=== PATIENT | female | born 1980 | race African-American/Black ===

== ENCOUNTER 2018-04-02 17:59 | Emergency (ER) | payer OTHER ==
[2018-04-02 18:10] VITALS: BMI 38.6
--- NOTE | 2018-04-02 18:22 | PDOC ---
History of Present Illness - General Chief Complaint: Chest Pain Stated Complaint: CHEST PAIN, EARACHE, THROAT PAIN Time Seen by Provider: 04/02/18 18:21 - History of Present Illness Initial Comments: 04/02/18 19:12 The patient is a 37 year old female with a history of HTN, obesity who presents for evaluation of chest pain, headache, and shortness of breath. The patient reports a 2 day history of poorly described upper chest pain with associated mild shortness of breath worse when lying flat at night to sleep. She also notes a pressure in her ears when lying flat at night and currently complains of a headache as well. She otherwise denies fevers, chills, nausea, vomiting, abdominal pain, numbness, tingling, weakness, or changes with urination or bowel movements. She denies any leg swelling as well. Past History - Past Medical History Allergies/Adverse Reactions: Allergies Allergy/AdvReac Type Severity Reaction Status Date / Time No Known Allergies Allergy Verified 04/02/18 18:10 Home Medications: Ambulatory Orders Amox-Tr/K Cl [Augmentin - 875Mg Tablet] 1 tab PO BID #14 tablet 04/02/18 Atenolol [Tenormin] 25 mg PO DAILY 04/02/18 COPD: No - Suicide/Smoking/Psychosocial Hx Smoking History: Never smoked Review of Systems - Review of Systems Comments:: 04/02/18 19:15 Constitutional: No fevers, chills, fatigue, malaise HEENT: Ear pressure. No Rhinorrhea, nasal congestion, visual changes Cardiovascular: Chest pain. No syncope, palpitations, lightheadedness Respiratory: SOB. No Cough, Hemoptysis, Gastrointestinal: No Abdominal pain, Nausea, Vomiting, Constipation, Diarrhea, Melena Genitourinary: No Dysuria, Frequency, Urgency, Hesitancy, Hematuria, Flank pain Musculoskeletal: No Myalgia, arthralgia Skin: No rashes, itching, bruising, pallor Neurologic: Headache. No Dizziness, Numbness, Weakness, or Tingling Psychiatric: No Hallucinations. No SI or HI *Physical Exam - Vital Signs Last Vital Signs Temp Pulse Resp BP Pulse Ox 98.3 F 67 18 122/59 L 98 04/02/18 18:06 04/02/18 18:06 04/02/18 18:06 04/02/18 18:06 04/02/18 18:06 - Physical Exam Comments: 04/02/18 19:17 General Appearance: Nourished. No Apparent Distress HEENT: EOMI, EBENEZER. No Pharyngeal Erythema, Tonsillar Exudate, Tonsillar Erythema Neck: No Cervical Lymphadenopathy Respiratory/Chest: Lungs Clear, Normal Breath Sounds. No Crackles, Rales, Rhonchi, Wheezing Cardiovascular: Regular Rhythm, Regular Rate. No Murmur, Gallops, Rubs Gastrointestinal/Abdominal: Normal Bowel Sounds, Soft. No Guarding, Rebound, Tenderness Musculoskeletal: No CVA Tenderness Extremity: Normal Capillary Refill Integumentary: Normal Color, Dry, Warm Neurologic: customer service leader II-XII NML intact, Fully Oriented, Alert, Normal Mood/Affect, Normal Response, Heart Score/ECG Review #1 ECG reviewed & interpreted by me at: 19:17 General ECG Interpretation: Sinus Rhythm, Normal Rate, Normal Intervals, No acute ischemic changes ED Treatment Course - LABORATORY CBC & Chemistry Diagram: 04/02/18 18:45 04/02/18 18:45 Medical Decision Making - Medical Decision Making 04/02/18 19:18 The patient is a 37 year old female with a history of HTN, obesity who presents for evaluation of chest pain, headache, and shortness of breath. Differential includes but is not limited to: ACS, Arrhythmia, Infectious, Metabolic Derangement. Given the patient's history and physical exam, we will obtain a cbc, cmp, troponin, bnp, ekg, chest plain film, serum beta to evaluate further. We will treat with iv tylenol and continue to monitor and reassess while here in the ED. 04/02/18 21:09 CBC, cmp, troponin, BNP are unremarkable. Chest plain film is unremarkable. CT head demonstrates a left otitis media as preliminarily read by our construction engineer radiologist. We have treated the patient with a dose of unasyn here in the ED. The patient appears clinically well on exam here in the ED. We are comfortable discharging the patient home with ENT and primary care provider follow up. We have provided follow up options with the patient. We will discharge the patient on augmentin. We discussed the results, plan, and return precautions with the patient who voiced understanding and is agreeable with the plan. *DC/Admit/Observation/Transfer Diagnosis at time of Disposition: Otitis media Qualifiers: Otitis media type: unspecified Chronicity: acute Qualified Code(s): H66.90 - Otitis media, unspecified, unspecified ear - Discharge Dispostion Disposition: HOME Condition at time of disposition: Stable Decision to Admit order: No - Prescriptions Prescriptions: Amox-Tr/K Cl [Augmentin - 875Mg Tablet] 1 tab PO BID #14 tablet - Referrals Referrals: Bran Hyde MD [Staff Physician] - Ruddy Arroyo MD [Staff Physician] - - Patient Instructions Printed Discharge Instructions: Middle Ear Infection Additional Instructions: Please return to the ER if you experience concerning or worsening symptoms including worsening difficulty breathing, weakness, or chest pain, fever, headache. It appears that you have an infection in your inner left ear. We have sent a prescription to your pharmacy for antibiotics that you should take as directed. Please also call to schedule a follow up appointment with our ENT specialist Dr. Hyde tomorrow to discuss your symptoms and further management. Your lab results were normal here in the ER. Please call to schedule a follow up appointment with your primary care provider within 2-3 days to discuss your ER visit and further management of your symptoms. - Post Discharge Activity
[2018-04-02] MEDS ORDERED: ACETAMINOPHEN 1000 MG/100 ML VIAL (NON FORMULARY) IVPB ONE (18:38)
[2018-04-02] MEDS ORDERED: ACETAMINOPHEN INJECTION 100 ML IVPB ONE (18:49)
[2018-04-02 18:56] LABS: BASO % 0.7 % (0-2.0); HEMATOCRIT 36.8 % (32.4-45.2); HEMOGLOBIN 12.3 GM/dL (10.7-15.3); LYMPH % 43.8 % (8-40); MCH 28.6 pg (25.7-33.7); MCHC 33.5 g/dl (32.0-36.0); MEAN CELL VOLUME 85.4 fl (80-96); MEAN PLT VOLUME 9.3 fl (7.5-11.1); MONO % 6.2 % (3.8-10.2); NEUT % 46.3 % (42.8-82.8); PLATELET COUNT 255 K/MM3 (134-434); RBC 4.32 M/mm3 (3.60-5.2); RDW 15.3 % (11.6-15.6); WHITE BLOOD COUNT 4.7 K/mm3 (4.0-10.0)
--- NOTE | 2018-04-02 19:09 | PDOC ---
Attending Attestation - HPI HPI: 04/02/18 20:03 The patient is a 37 year old female, with a significant past medical history of HTN, who presents to the emergency department with, ear pressure, headache, and chest pain radiating to her back. Patient notes when she lays down to sleep she begins to feel a parisi and fullness to her head and ears. She denies recent fevers, chills, or dizziness. She denies recent nausea, vomit , diarrhea or constipation. She denies recent dysuria, frequency, urgency or hematuria. Allergies: NKDA Past surgical history: None reported. Social history: Nonsmoker. Denies EtOH use and recreational drug use. - Physicial Exam PE: 04/02/18 20:03 +GENERAL: Obese. Awake, alert, and fully oriented, in no acute distress HEAD: No signs of trauma EYES: PERRLA, EOMI, sclera anicteric, conjunctiva clear +ENT: Left TM swollen with white pus-like discharge. Nontender sinuses. NECK: Normal ROM, supple, no lymphadenopathy, JVD, or masses LUNGS: Breath sounds equal, clear to auscultation bilaterally. No wheezes, and no crackles HEART: Regular rate and rhythm, normal S1 and S2, no murmurs, rubs or gallops +ABDOMEN: Protuberant. Soft, nontender, normoactive bowel sounds. No guarding, no rebound. No masses EXTREMITIES: Normal range of motion, no edema. No clubbing or cyanosis. No cords, erythema, or tenderness NEUROLOGICAL: Cranial nerves II through XII grossly intact. Normal speech, normal gait SKIN: Warm, Dry, normal turgor, no rashes or lesions noted. <Soha Nation - Last Filed: 04/02/18 20:03> - Resident Resident Name: Conner Conklin - ED Attending Attestation I have performed the following: I have examined & evaluated the patient, The case was reviewed & discussed with the resident, I agree w/resident's findings & plan - Medical Decision Making 04/02/18 19:28 Pt comes with fullness in her ears and head, especially when she lies down. 04/02/18 19:29 Pt has a CPK of 700s. EKG is NSR and her vitals amd other labs are normal. 04/02/18 21:02 Patient Name: JUAN DIEGO RUIZ THIS IS A PRELIMINARY REPORT FROM [facility] DATE OF SERVICE: 2018-04-02 19:58:22 IMAGES: 143 EXAM: CT head without contrast HISTORY: Ear pressure COMPARISON: None. FINDINGS: There is no evidence of acute infarction. There is no hemorrhage. No mass lesion is seen. There is no skull fracture. Visualized portions of the paranasal sinuses are essentially clear. Mastoid air cells are normally pneumatized. *On the coronal reformatted images there is minimal opacity noted in the left middle ear cavity and question minimal thickening of the left tympanic membrane. Otitis media? Incidentally noted is a likely old fracture of the left orbital floor. Correlate as to chronicity. THIS DOCUMENT HAS BEEN ELECTRONICALLY SIGNED 04/02/18 21:03 Pt will be treated with augmentin BID; asked to return for worsening headache and symptoms. <Callie Gilliland - Last Filed: 04/02/18 21:04> Heart Score/ECG Review - ECG Intrepretation Rhythm: Regular Rhythm - Dumont Dumont: Normal - P and TX Delta Wave(s) Present: No WPW: No - QRS Poor R Wave Progression: No Q Wave Present: No - ST and T Early Repolarization: No Non Specific ST-T Wave changes: No Flattened T Waves: No Prolonged Q-T Interval: No - ECG Impressions Normal ECG: Yes Non-specific ST Elevation: No Ischemic Changes: No Bradycardia: No Torsades todd Pointes: No WPW: No <Callie Gilliland - Last Filed: 04/02/18 21:04> Attestations - Attestations 04/02/18 20:05 Documentation prepared by Soha Nation, acting as manager medical affairs for Callie Gilliland MD. <Soha Nation - Last Filed: 04/02/18 20:03>
[2018-04-02 19:21] LABS: ALBUMIN 3.6 g/dl (3.4-5.0); ALK PHOS 75 U/L (45-117); ANION GAP 6 MMOL/L (8-16); BILIRUBIN,TOTAL 0.2 mg/dL (0.2-1); BLOOD UREA NITROGEN 12 mg/dL (7-18); CALCIUM 8.4 mg/dL (8.5-10.1); CHLORIDE 109 mmol/L (98-107); CO2 26 mmol/L (21-32); CREATININE 0.7 mg/dL (0.55-1.3); GLUCOSE,RANDOM 86 mg/dL (74-106); N-TERMINAL BNP 41.8 pg/ml (5-125); POTASSIUM 3.6 mmol/L (3.5-5.1); SGOT/AST 22 U/L (15-37); SGPT/ALT 19 U/L (13-61); SODIUM 141 mmol/L (136-145); TOT PROT 7.2 g/dl (6.4-8.2)
[2018-04-02] MEDS ORDERED: AMPICILLIN NA/SULBACTAM NA 3 GM in SODIUM CHLORIDE 100 ML IVPB ONE (19:26)
[2018-04-02] MEDS ORDERED: SODIUM CHLORIDE 0.9% 500 ML INFUS.BAG IV ONE (19:28)
[2018-04-02 21:21] VITALS: BP 122/78; PULSE 89; TEMP 98.6
--- NOTE | 2018-04-03 10:46 | EKG ---
Test Reason : Blood Pressure : / mmHG Vent. Rate : 064 BPM Atrial Rate : 064 BPM P-R Int : 182 ms QRS Dur : 080 ms QT Int : 408 ms P-R-T Axes : 058 069 063 degrees QTc Int : 420 ms NORMAL SINUS RHYTHM NORMAL ECG NO PREVIOUS ECGS AVAILABLE Confirmed by TRELL MERCADO MD ([id number]) on 04/03/2018 10:46:29 AM Referred By: Confirmed By:TRELL MERCADO MD
== END 2018-04-02 21:22 | disposition home or self-care (01) ==
LOC: JER 17:59
PROC: 3E03329 Introduction of Other Anti-infective into Peripheral Vein, Percutaneous Approach (ICD-10-PCS; principal; 2018-04-02)
PROC: 3E033NZ Introduction of Analgesics, Hypnotics, Sedatives into Peripheral Vein, Percutaneous Approach (ICD-10-PCS; 2018-04-02)
DX: H66.92 Otitis media, unspecified, left ear (principal); I10 Essential (primary) hypertension
CPT/HCPCS: 36415; 70450-TC; 71045-TC-FY; 80053; 82550; 82553; 83880; 84484; 84702; 85025; 93005; 93010; 99282-25; J0131

== ENCOUNTER 2018-07-08 23:27 | Emergency (ER) | payer OTHER ==
[2018-07-08 23:39] VITALS: BP 151/86; PULSE 120; TEMP 98.6; BMI 48.4
--- NOTE | 2018-07-08 23:49 | PDOC ---
History of Present Illness - General History Source: Patient Exam Limitations: No Limitations - History of Present Illness Initial Comments: 07/09/18 00:02 38 year old female with PMH HTN, medication noncompliance presented to ED for headache since 2199 today. Pt stated headache is locatded to her forehead, constant, throbbing, nonradiating, slowly progressing. Pt admitted to blurry vision, lightheadedness. Pt stated she ran out of her Atenolol x3 weeks ago because she moved, she stated she got her prescription today, and took the first dose. Allergies: NKDA <Joann Cardenas - Last Filed: 07/09/18 01:52> <Callie Gilliland - Last Filed: 07/09/18 02:38> - General Chief Complaint: Blood Pressure Problem Stated Complaint: HIGH BP Time Seen by Provider: 07/08/18 23:49 Past History - Past Medical History COPD: No HTN: Yes - Suicide/Smoking/Psychosocial Hx Smoking History: Never smoked <Joann Cardenas - Last Filed: 07/09/18 01:52> <Callie Gilliland - Last Filed: 07/09/18 02:38> - Past Medical History Allergies/Adverse Reactions: Allergies Allergy/AdvReac Type Severity Reaction Status Date / Time No Known Allergies Allergy Verified 07/08/18 23:32 Home Medications: Ambulatory Orders Amox-Tr/K Cl [Augmentin - 875Mg Tablet] 1 tab PO BID #14 tablet 04/02/18 Atenolol [Tenormin] 25 mg PO DAILY 04/02/18 Review of Systems - Review of Systems Able to Perform ROS?: Yes Comments:: 07/09/18 00:11 General: admitted to generalized weakness. denied fever, chills, night sweats. HEENT: denied sore throat, rhinorrhea, ear pain. Eyes: admitted to blurry vision. Heart: denied chest pain, palpitations, syncope, lower extremity swelling, diaphoresis. Respiratory: denied shortness of breath, cough, sputum production, hemoptysis. Abdomen: denied abdominal pain, nausea, vomiting, diarrhea, constipation, blood in stool. : denied dysuria, increased urinary frequency, hematuria, urinary incontinence , flank pain. Back: denied back pain. Musculoskeletal: denied joint pain, muscle pain, joint swelling. Neurological: admitted to headache. denied dizziness, numbness, tingling, weakness. Skin: denied rash, laceration, abrasion. <Joann Cardenas - Last Filed: 07/09/18 01:52> *Physical Exam - Vital Signs Last Vital Signs Temp Pulse Resp BP Pulse Ox 98.6 F 120 H 18 151/86 97 07/08/18 23:30 07/08/18 23:30 07/08/18 23:30 07/08/18 23:30 07/08/18 23:30 - Physical Exam Comments: 07/09/18 00:13 Constitutional: Well-nourished, Well-developed, appearing stated age. HEENT: head is normocephalic, atraumatic. EOMI. PERRLA. Neck: supple. Full ROM. Heart: regular rhythm. no murmurs, rubs or gallops. Lungs: clear to auscultation bilaterally. no crackles, rhonchi or wheezing. no stridor. Abdomen: soft, nontender. normal bowel sounds. no rebound, guarding, masses. Extremities: Peripheral pulses intact. No lower extremity edema. Neurological: Alert. Oriented x3. CN2-12 intact. 5/5 strength all extremities. Full sensation all extremities and bilateral face. Gait normal. Psych: awake, alert, oriented x3. Follows commands. Answers questions appropriately. <Joann Cardenas - Last Filed: 07/09/18 01:52> - Vital Signs Last Vital Signs Temp Pulse Resp BP Pulse Ox 98.6 F 120 H 18 151/86 97 07/08/18 23:30 07/08/18 23:30 07/08/18 23:30 07/08/18 23:30 07/08/18 23:30 <Callie Gilliland - Last Filed: 07/09/18 02:38> Moderate Sedation - Procedure Monitoring Vital Signs: Procedure Monitoring Vital Signs Temperature 98.6 F 07/08/18 23:30 Pulse Rate 120 H 07/08/18 23:30 Respiratory Rate 18 07/08/18 23:30 Blood Pressure 151/86 07/08/18 23:30 O2 Sat by Pulse Oximetry (%) 97 07/08/18 23:30 <Joann Cardenas - Last Filed: 07/09/18 01:52> - Procedure Monitoring Vital Signs: Procedure Monitoring Vital Signs Temperature 98.6 F 07/08/18 23:30 Pulse Rate 120 H 07/08/18 23:30 Respiratory Rate 18 07/08/18 23:30 Blood Pressure 151/86 07/08/18 23:30 O2 Sat by Pulse Oximetry (%) 97 07/08/18 23:30 <Callie Gilliland - Last Filed: 07/09/18 02:38> ED Treatment Course - LABORATORY CBC & Chemistry Diagram: 07/09/18 00:00 07/09/18 00:00 <RonaldJoann castillo - Last Filed: 07/09/18 01:52> - LABORATORY CBC & Chemistry Diagram: 07/09/18 00:00 07/09/18 00:00 - ADDITIONAL ORDERS Additional order review: Laboratory Results 07/09/18 07/09/18 00:35 00:00 Sodium 139 Potassium 3.2 L Chloride 108 H Carbon Dioxide 23 Anion Gap 7 L BUN 20 H Creatinine 0.9 Creat Clearance w eGFR > 60 Random Glucose 127 H Calcium 8.5 Total Bilirubin 0.1 L AST 23 ALT 27 Alkaline Phosphatase 91 Troponin I < 0.02 B-Natriuretic Peptide 14.7 Total Protein 7.9 Albumin 3.8 Urine Color Yellow Urine Appearance Clear Urine pH 6.0 Ur Specific [place] 1.028 Urine Protein 3+ H Urine Glucose (UA) Negative Urine Ketones Negative Urine Blood Negative Urine Nitrite Negative Urine Bilirubin Negative Urine Urobilinogen 2.0 H Ur Leukocyte Esterase Negative Urine WBC (Auto) 1 Urine RBC (Auto) 11 Ur Epithelial Cells Rare Urine Mucus Rare Urine HCG, Qual Negative 07/09/18 00:00 RBC 4.12 MCV 86.2 MCHC 33.6 RDW 15.1 MPV 9.5 Neutrophils % 45.1 Lymphocytes % 46.8 H Monocytes % 5.9 Eosinophils % 1.6 Basophils % 0.6 - Medications Given in the ED: ED Medications Discontinued Medications Generic Name Dose Route Start Last Admin Trade Name Freq PRN Reason Stop Dose Admin Acetaminophen 1,000 mg 07/09/18 00:15 07/09/18 00:40 Ofirmev Injection - IVPB 07/09/18 00:16 1,000 mg ONCE ONE Administration Diphenhydramine HCl 12.5 mg 07/09/18 00:16 07/09/18 00:25 Benadryl Injection - IVPUSH 07/09/18 00:17 12.5 mg ONCE ONE Administration Sodium Chloride 1,000 mls @ 1,000 mls/hr 07/09/18 00:15 07/09/18 00:41 Normal Saline - IV 07/09/18 01:14 1,000 mls/hr ASDIR STA Administration Metoclopramide HCl 10 mg 07/09/18 00:15 07/09/18 00:30 Reglan Injection - IVPUSH 07/09/18 00:16 10 mg ONCE ONE Administration <Callie Gilliland - Last Filed: 07/09/18 02:38> Medical Decision Making - Medical Decision Making 07/09/18 00:15 38 year old female with PMH HTN with medication noncompliance presented to ED for headache, blurry vision, lightheadedness. Initial Vital Signs Temp Pulse Resp BP Pulse Ox 98.6 F 120 H 18 151/86 97 07/08/18 23:30 07/08/18 23:30 07/08/18 23:30 07/08/18 23:30 07/08/18 23:30 Afebrile. Tachycardic. No tachypnea. Mild hypertension. No hypoxia on room air. o Labs ordered: CBC, CMP, UA, urine , BNP, troponin c Imaging ordered: CXR, CT head g Medications ordered: normal saline bolus, reglan, tylenol, benadryl EKG performed at 0034: rate 87, regular rate, normal axis, normal intervals, nonspecific ST changes. Tachycardia resolved. 07/09/18 00:49 CBC WBC 5.8 K/mm3 (4.0-10.0) 07/09/18 00:00 RBC 4.12 M/mm3 (3.60-5.2) 07/09/18 00:00 Hgb 11.9 GM/dL (10.7-15.3) 07/09/18 00:00 Hct 35.5 % (32.4-45.2) 07/09/18 00:00 MCV 86.2 fl (80-96) 07/09/18 00:00 MCH 29.0 pg (25.7-33.7) 07/09/18 00:00 MCHC 33.6 g/dl (32.0-36.0) 07/09/18 00:00 RDW 15.1 % (11.6-15.6) 07/09/18 00:00 Plt Count 239 K/MM3 (134-434) 07/09/18 00:00 MPV 9.5 fl (7.5-11.1) 07/09/18 00:00 Absolute Neuts (auto) 2.6 K/mm3 (1.5-8.0) 07/09/18 00:00 Neutrophils % 45.1 % (42.8-82.8) 07/09/18 00:00 Lymphocytes % 46.8 % (8-40) H 07/09/18 00:00 Monocytes % 5.9 % (3.8-10.2) 07/09/18 00:00 Eosinophils % 1.6 % (0-4.5) 07/09/18 00:00 Basophils % 0.6 % (0-2.0) 07/09/18 00:00 Nucleated RBC % 0 % (0-0) 07/09/18 00:00 No leukocytosis. No anemia. 07/09/18 01:10 CMP Sodium 139 mmol/L (136-145) 07/09/18 00:00 Potassium o 3.2 mmol/L (3.5-5.1) L 07/09/18 00:00 Chloride 108 mmol/L (98-107) H 07/09/18 00:00 Carbon Dioxide 23 mmol/L (21-32) 07/09/18 00:00 Anion Gap 7 MMOL/L (8-16) L 07/09/18 00:00 BUN y 20 mg/dL (7-18) H 07/09/18 00:00 Creatinine 0.9 mg/dL (0.55-1.3) 07/09/18 00:00 Creat Clearance w eGFR > 60 (>60) 07/09/18 00:00 Random Glucose 127 mg/dL (74-106) H 07/09/18 00:00 Calcium 8.5 mg/dL (8.5-10.1) 07/09/18 00:00 Total Bilirubin 0.1 mg/dL (0.2-1) L 07/09/18 00:00 AST 23 U/L (15-37) 07/09/18 00:00 ALT 27 U/L (13-61) 07/09/18 00:00 Alkaline Phosphatase 91 U/L (45-117) 07/09/18 00:00 Troponin I < 0.02 ng/ml (0.00-0.05) 07/09/18 00:00 B-Natriuretic Peptide 14.7 pg/ml (5-125) 07/09/18 00:00 Total Protein 7.9 g/dl (6.4-8.2) 07/09/18 00:00 Albumin 3.8 g/dl (3.4-5.0) 07/09/18 00:00 Mild hypokalemia. No GARTH. Mild dehydration. Mild hyperglycemia. No transaminitis. Normal troponin. No BNP elevation. Urine Test Results Urine Color Yellow 07/09/18 00:35 Urine Appearance Clear 07/09/18 00:35 Urine pH 6.0 (5.0-8.0) 07/09/18 00:35 Ur Specific [place] 1.028 (1.010-1.035) 07/09/18 00:35 Urine Protein y 3+ (NEGATIVE) H 07/09/18 00:35 Urine Glucose (UA) Negative (NEGATIVE) 07/09/18 00:35 Urine Ketones Negative (NEGATIVE) 07/09/18 00:35 Urine Blood Negative (NEGATIVE) 07/09/18 00:35 Urine Nitrite Negative (NEGATIVE) 07/09/18 00:35 Urine Bilirubin Negative (<2.0 mg/dL) 07/09/18 00:35 Ur Leukocyte Esterase Negative (NEGATIVE) 07/09/18 00:35 Urine test negative. o 3+ protein in urine. Proteinuria without GARTH. 07/09/18 01:43 CXR my interpretation: sharp costphrenic angles. no cardiomegaly. no pulmonary vascular congestion. 07/09/18 01:[address] head. Pt signed out to Dr. Mendiola. <Joann Cardenas - Last Filed: 07/09/18 01:52> *DC/Admit/Observation/Transfer <Joann Cardenas - Last Filed: 07/09/18 01:52> <Callie Gilliland - Last Filed: 07/09/18 02:38> Diagnosis at time of Disposition: Headache - Discharge Dispostion Disposition: HOME - Referrals Referrals: Liliana Karimi MD [Provisional Medical Staff] - - Patient Instructions Printed Discharge Instructions: DI for High Blood Pressure, How to Monitor Your Blood Pressure at Home Additional Instructions: Your lab work was normal. Your chest X-ray was normal. Your Head CAT scan was normal. Take your medication as prescribed. Take Tylenol over the counter for pain, take as advised on label. Follow up with a primary care doctor in 3-5 days. Your care is not complete until you follow up. I have provided you with a referral. Return to the Emergency Department for increasing pain, numbness, weakness, chest pain, shortness of breath, swelling in your legs, abdominal pain, vomiting or any other new, worsening or concerning symptoms. - Post Discharge Activity Forms/Work/School Notes: Back to Work
[2018-07-09] MEDS ORDERED: ACETAMINOPHEN 1000 MG/100 ML VIAL (NON FORMULARY) IVPB ONE (00:15)
[2018-07-09] MEDS ORDERED: SODIUM CHLORIDE 1,000 ML IV STA (00:15)
[2018-07-09] MEDS ORDERED: METOCLOPRAMIDE HCL INJECTION 10 MG/2 ML VIAL IVPUSH ONE (00:15)
--- NOTE | 2018-07-09 00:17 | PDOC ---
Attending Attestation - HPI HPI: 07/09/18 00:30 The patient is a 38 year old female with past medical history significant for HTN presents to the emergency department with a headache. The patient presents with 2 weeks of intermittent headaches that worsen today. The patient states around 10:40 pm today, she felt a sudden onset of headache. The patient reports she recently moved here 3 weeks ago from [place]. The patient reports she isn t compliant with atenolol for the past 2-3 weeks. DEnies chest pain, SOB, diplopia, blurry vision, nausea, vomiting. Allergies: NKDA PCP: NOne reported. - Physicial Exam PE: 07/09/18 00:31 Vitals: Triage vital signs reviewed General Appearance: No acute distress, well nourished, well developed Neck: Supple; No nuchal rigidity Chest Wall: Nontender Cardiac: Regular rate and rhythm, no murmurs, no rubs, no gallops Lungs: Clear to auscultation bilateral, good air movement bilaterally Abdomen: Soft, nondistended, normal bowel sounds, nontender to palpation Extremities: Full range of motion to all extremities, no cyanosis, clubbing, or edema Skin: Warm and dry, no rashes or lesions, no rash, no petechiae. - Medical Decision Making 07/09/18 00:31 Documentation prepared by Tamie Andrade, acting as esthetician and manager medical spa for uLiz Haddad MD. 07/09/18 00:51 Plan: Medication Labs: CMP, BNP, Troponin, UA, EKG. Imagining: Chest X-ray. <Tamie Andrade - Last Filed: 07/09/18 00:51> - Medical Decision Making 07/09/18 02:37 Patient Name: JUAN DIEGO RUIZ THIS IS A PRELIMINARY REPORT FROM [facility] DATE OF SERVICE: 2018-07-09 01:59:30 IMAGES: 151 EXAM: HEAD CT WITHOUT CONTRAST HISTORY: Headache COMPARISON: None. FINDINGS: Brain parenchyma is normal in attenuation with no mass or hematoma. There is no midline shift. Varela and white matter differentiation is normal. Ventricles are normal. Sulci and extra-axial CSF spaces are normal. Intracranial vascular structures are normal in attenuation. There is no calvarial fracture. Paranasal sinuses are normally aerated. Rounded density in the left maxillary sinus suggests a mucous retention cyst IMPRESSION: Normal head <Callie Gilliland - Last Filed: 07/09/18 02:37> - Resident Resident Name: Joann Cardenas - ED Attending Attestation I have performed the following: I have examined & evaluated the patient, The case was reviewed & discussed with the resident, I agree w/resident's findings & plan, Exceptions are as noted - Medical Decision Making Patient with several week history of intermittent headaches positive history of headaches in the past history of hypertension recently started on a medication presents to the ED with progressively worsening headache starting at 10 PM this evening. Patient checks her blood pressure noted to be elevated Normal neurologic exam patient feeling better upon arrival to the emergency department given onset of the headache within the last [address] was ordered labs were ordered and migraine medications ordered Dr. Gilliland to follow up head CT, labs and reasses patient <Luiz Haddad - Last Filed: 07/09/18 20:36>
[2018-07-09] MEDS ORDERED: METOCLOPRAMIDE HCL INJECTION 10 MG/2 ML VIAL ONE (00:21)
[2018-07-09] MEDS ORDERED: ACETAMINOPHEN INJECTION 100 ML IVPB ONE (00:22)
[2018-07-09 00:33] LABS: BASO % 0.6 % (0-2.0); EOS % 1.6 % (0-4.5); HEMATOCRIT 35.5 % (32.4-45.2); HEMOGLOBIN 11.9 GM/dL (10.7-15.3); LYMPH % 46.8 % (8-40); MCHC 33.6 g/dl (32.0-36.0); MEAN CELL VOLUME 86.2 fl (80-96); MEAN PLT VOLUME 9.5 fl (7.5-11.1); MONO % 5.9 % (3.8-10.2); NEUT % 45.1 % (42.8-82.8); PLATELET COUNT 239 K/MM3 (134-434); RBC 4.12 M/mm3 (3.60-5.2); RDW 15.1 % (11.6-15.6); WHITE BLOOD COUNT 5.8 K/mm3 (4.0-10.0)
[2018-07-09 01:03] LABS: URINE APPEARANCE CLEAR; URINE BILIRUBIN NEGATIVE (<2.0 mg/dL); URINE COLOR YELLOW; URINE GLUCOSE (UA) NEGATIVE (NEGATIVE); URINE KETONE NEGATIVE (NEGATIVE); URINE LEUK ESTERASE NEGATIVE (NEGATIVE); URINE NITRITE NEGATIVE (NEGATIVE); URINE PROTEIN 3+ (NEGATIVE)
[2018-07-09 01:05] LABS: HCG,QUALITATIVE URINE Negative
[2018-07-09 01:06] LABS: ALBUMIN 3.8 g/dl (3.4-5.0); ALK PHOS 91 U/L (45-117); ANION GAP 7 MMOL/L (8-16); BILIRUBIN,TOTAL 0.1 mg/dL (0.2-1); BLOOD UREA NITROGEN 20 mg/dL (7-18); CALCIUM 8.5 mg/dL (8.5-10.1); CHLORIDE 108 mmol/L (98-107); CO2 23 mmol/L (21-32); CREATININE 0.9 mg/dL (0.55-1.3); GLUCOSE,RANDOM 127 mg/dL (74-106); N-TERMINAL BNP 14.7 pg/ml (5-125); POTASSIUM 3.2 mmol/L (3.5-5.1); SGOT/AST 23 U/L (15-37); SGPT/ALT 27 U/L (13-61); SODIUM 139 mmol/L (136-145); TOT PROT 7.9 g/dl (6.4-8.2)
[2018-07-09 01:11] LABS: EPI CELLS RARE /HPF (FEW); URINE MUCUS RARE
[2018-07-09] MEDS ORDERED: POTASSIUM CHLORIDE TABS 20 MEQ TABLET.ER (FP) PO ONE ×2 (01:39→03:12)
[2018-07-09] MEDS ORDERED: KCL 10 MEQ IVPB 10 MEQ/100 ML INFUS.BAG IVPB SCH (01:45)
[2018-07-09] MEDS ORDERED: MAGNESIUM SULF 50% (8.12 MEQ/2 ML-1 GM VIAL) IVPB ONE (01:49)
[2018-07-09] MEDS ORDERED: MAGNESIUM 1GM/D5W - 2 GM/200 ML IVPB IVPB ONE (03:12)
--- NOTE | 2018-07-09 12:47 | EKG ---
Test Reason : Blood Pressure : / mmHG Vent. Rate : 087 BPM Atrial Rate : 087 BPM P-R Int : 168 ms QRS Dur : 082 ms QT Int : 390 ms P-R-T Axes : 053 052 045 degrees QTc Int : 469 ms POOR DATA QUALITY, INTERPRETATION MAY BE ADVERSELY AFFECTED NORMAL SINUS RHYTHM NONSPECIFIC T WAVE ABNORMALITY PROLONGED QT ABNORMAL ECG WHEN COMPARED WITH ECG OF 02-APR-2018 18:04, QT HAS LENGTHENED Confirmed by KEYON PARK MD ([id number]) on 07/09/2018 12:47:03 PM Referred By: Confirmed By:KEYON PARK MD
== END 2018-07-09 03:54 | disposition home or self-care (01) ==
LOC: JER 23:27
PROC: 3E0337Z Introduction of Electrolytic and Water Balance Substance into Peripheral Vein, Percutaneous Approach (ICD-10-PCS; principal; 2018-07-08)
PROC: 3E033GC Introduction of Other Therapeutic Substance into Peripheral Vein, Percutaneous Approach (ICD-10-PCS; 2018-07-08)
PROC: 3E033GC Introduction of Other Therapeutic Substance into Peripheral Vein, Percutaneous Approach (ICD-10-PCS; 2018-07-08)
PROC: 3E033GC Introduction of Other Therapeutic Substance into Peripheral Vein, Percutaneous Approach (ICD-10-PCS; 2018-07-08)
DX: R51 Headache (principal); I10 Essential (primary) hypertension; R80.9 Proteinuria, unspecified; E87.6 Hypokalemia
CPT/HCPCS: 36415; 70450-TC; 71045-TC-FY; 80053; 81003; 81015; 83880; 84484; 84703; 85025; 93005; 93010; 99283-25; J0131; J7030

== ENCOUNTER 2020-12-29 04:52 | Inpatient (IN) | payer OTHER ==
[2020-12-26 14:38] VITALS: BMI 38.3
[2020-12-29] MEDS ORDERED: CEFAZOLIN 2 GM in DEXTROSE 5%-WATER - 100 ML IVPB ONE ×2 (08:30→10:00)
[2020-12-29] MEDS ORDERED: VASOPRESSIN 20 UNITS/ML VIAL IV ONE (12:44)
[2020-12-29] MEDS ORDERED: BUPIVACAINE HCL/PF 0.5% (5MG/ML) 10 ML VIAL ONE (13:06)
[2020-12-29] MEDS ORDERED: BUPIVACAINE LIPOSOME/PF (EXPAREL) 266 MG/20 ML VIAL ONE (13:06)
[2020-12-29] MEDS ORDERED: MIDAZOLAM HCL 2 MG/2 ML SINGLE DOSE VIAL ONE ×2 (13:11)
[2020-12-29] MEDS ORDERED: fentaNYL CITRATE 250 MCG/5 ML VIAL ONE (13:13)
[2020-12-29] MEDS ORDERED: SUCCINYLCHOLINE CHLORIDE 200 MG/10 ML SYRINGE ONE (13:14)
[2020-12-29] MEDS ORDERED: PROPOFOL 20 ML ONE (13:14)
[2020-12-29] MEDS ORDERED: ceFAZolin SODIUM 1 GM VIAL IVPB ONE (14:00)
[2020-12-29] MEDS ORDERED: ceFAZolin SODIUM 1 GM VIAL ONE (14:02)
[2020-12-29] MEDS ORDERED: DEXAMETHASONE SOD PHOSPHATE 4 MG/1 ML VIAL ONE (14:04)
[2020-12-29] MEDS ORDERED: GLYCOPYRROLATE 0.2 MG/1 ML VIAL ONE (14:41)
[2020-12-29] MEDS ORDERED: NEOSTIGMINE METHYLSULFATE 0.5 MG/ML - 10 ML MDV ONE (14:41)
[2020-12-29] MEDS ORDERED: IBUPROFEN 800 MG/8 ML IJ IVPB PRN (15:28)
[2020-12-29] MEDS ORDERED: DOCUSATE SODIUM 100 MG CAPSULE (FP) PO PRN (15:28)
[2020-12-29] MEDS ORDERED: BISACODYL 5 MG TABLET.DR (FP) PO PRN (15:28)
[2020-12-29] MEDS ORDERED: ONDANSETRON 4 MG/2 ML VIAL IVPUSH PRN ×2 (15:28→15:30)
[2020-12-29] MEDS ORDERED: IBUPROFEN 800 MG/8 ML IJ IVPB ONE (16:40)
[2020-12-29] MEDS: HYDROmorphone HCl 2 MG/ML VIAL IVPUSH PRN ×4 (17:09→17:52)
[2020-12-29] MEDS ORDERED: HYDROmorphone HCl 2 MG/ML VIAL ONE (17:09)
[2020-12-29 19:30] LABS: HEMATOCRIT 33.2 % (32.4-45.2); HEMOGLOBIN 10.9 GM/dL (10.7-15.3); MCH 26.7 pg (25.7-33.7); MCHC 32.8 g/dl (32.0-36.0); MEAN CELL VOLUME 81.4 fl (80-96); MEAN PLT VOLUME 8.8 fl (7.5-11.1); PLATELET COUNT 270 10^3/uL (134-434); RBC 4.08 M/mm3 (3.60-5.2); RDW 15.7 % (11.6-15.6); WHITE BLOOD COUNT 12.5 K/mm3 (4.0-10.0)
[2020-12-29 19:58] LABS: CALCIUM 8.4 mg/dL (8.5-10.1)
[2020-12-29 20:01] LABS: CREATININE 0.6 mg/dL (0.55-1.3)
[2020-12-29] MEDS ORDERED: oxyCODONE HCL 5 MG TABLET ONE (20:11)
[2020-12-29] MEDS: oxyCODONE HCL 5 MG TABLET PO PRN ×2 (20:15→23:04)
[2020-12-29] MEDS: LACTATED RINGERS SOLUTION 1,000 ML IV SCH (22:58)
[2020-12-29] MEDS: ACETAMINOPHEN 325 MG TABLET (FP) PO PRN (23:02)
[2020-12-30] MEDS: ceFAZolin 2 GRAM PREMIX BAG IVPB SCH ×3 (00:03→15:39)
[2020-12-30] MEDS: LACTATED RINGERS SOLUTION 1,000 ML IV SCH ×2 (06:27→15:38)
[2020-12-30] MEDS: ACETAMINOPHEN 325 MG TABLET (FP) PO PRN (06:27)
[2020-12-30] MEDS: SIMETHICONE 80 MG TAB.CHEW (FP) PO PRN (08:59)
[2020-12-30] MEDS: oxyCODONE HCL 5 MG TABLET PO PRN ×3 (08:59→21:06)
[2020-12-30] MEDS: ENOXAPARIN NA (PORCINE) 40 MG/0.4 ML DISP.SYRIN SQ SCH (09:03)
[2020-12-30] MEDS: amLODIPine BESYLATE 10 MG TABLET (FP) PO SCH (09:04)
[2020-12-30 09:38] LABS: HEMATOCRIT 31.6 % (32.4-45.2); HEMOGLOBIN 10.5 GM/dL (10.7-15.3); MCH 27.1 pg (25.7-33.7); MCHC 33.2 g/dl (32.0-36.0); MEAN CELL VOLUME 81.5 fl (80-96); MEAN PLT VOLUME 8.8 fl (7.5-11.1); PLATELET COUNT 275 10^3/uL (134-434); RBC 3.87 M/mm3 (3.60-5.2); RDW 15.7 % (11.6-15.6); WHITE BLOOD COUNT 9.5 K/mm3 (4.0-10.0)
[2020-12-30 10:02] LABS: BLOOD UREA NITROGEN 9.4 mg/dL (7-18)
[2020-12-30 10:05] LABS: CALCIUM 8.3 mg/dL (8.5-10.1); CREATININE 0.8 mg/dL (0.55-1.3)
[2020-12-31] MEDS: SIMETHICONE 80 MG TAB.CHEW (FP) PO PRN (02:59)
[2020-12-31] MEDS: ENOXAPARIN NA (PORCINE) 40 MG/0.4 ML DISP.SYRIN SQ SCH (10:20)
[2020-12-31] MEDS: amLODIPine BESYLATE 10 MG TABLET (FP) PO SCH (10:20)
[2020-12-31] MEDS: oxyCODONE HCL 5 MG TABLET PO PRN (10:40)
[2020-12-31 14:39] VITALS: BP 145/78; PULSE 92; TEMP 98.4
== END 2020-12-31 18:34 | disposition home or self-care (01) | DRG 519 ==
LOC: J2C 04:52 → EDSTATUS 07:30 → J6S 22:25
PROVIDERS: ADMIT Obstetrics & Gynecology; ATTEND Obstetrics & Gynecology
PROC: 0UB90ZZ Excision of Uterus, Open Approach (ICD-10-PCS; principal; 2020-12-29 11:30)
DX: D25.9 Leiomyoma of uterus, unspecified (principal); N92.0 Excessive and frequent menstruation with regular cycle; D64.9 Anemia, unspecified
CPT/HCPCS: 36415; 80048; 84703; 85027; 86850; 86900; 86901; 88305-TC; 94760

== ENCOUNTER 2021-11-04 04:18 | Day surgery (SDC) | payer OTHER ==
[2021-11-03 11:58] VITALS: BMI 39.7
[2021-11-04] MEDS ORDERED: LIDOCAINE HCL 2% 100 MG/5 ML DISP.SYRIN ONE (14:31)
[2021-11-04] MEDS ORDERED: KETOROLAC TROMETHAMINE 30 MG/1 ML VIAL ONE (14:31)
[2021-11-04] MEDS ORDERED: DEXAMETHASONE SOD PHOSPHATE 4 MG/1 ML VIAL ONE (14:31)
[2021-11-04] MEDS ORDERED: MIDAZOLAM HCL 2 MG/2 ML SINGLE DOSE VIAL ONE (14:32)
[2021-11-04] MEDS ORDERED: PROPOFOL 20 ML ONE (14:32)
[2021-11-04] MEDS ORDERED: ACETAMINOPHEN 325 MG TABLET (FP) PO PRN (15:50)
[2021-11-04] MEDS ORDERED: IBUPROFEN 400 MG TABLET (FP) PO PRN (15:50)
[2021-11-04] MEDS ORDERED: oxyCODONE HCL 5 MG TABLET PO PRN ×2 (15:54)
[2021-11-04] MEDS ORDERED: ONDANSETRON 4 MG/2 ML VIAL IVPUSH PRN (15:54)
[2021-11-04] MEDS ORDERED: PROMETHAZINE HCL 25 MG/1 ML VIAL IVPUSH PRN (15:54)
[2021-11-04] MEDS ORDERED: FENTANYL CITRATE/PF 50 MCG/ML VIAL ONE ×3 (15:55→16:22)
[2021-11-04] MEDS ORDERED: LACTATED RINGERS SOLUTION 1,000 ML IV SCH (16:00)
[2021-11-04] MEDS ORDERED: NORETH A ET ESTRA PO ONE (19:30)
[2021-11-04] MEDS ORDERED: FE FUMARATE PO ONE (19:30)
[2021-11-04 20:44] VITALS: BP 129/65; PULSE 68; TEMP 98.7
== END 2021-11-04 20:00 | disposition home or self-care (01) ==
LOC: JASU-SURG 04:18
PROVIDERS: ATTEND Specialist
PROC: 0UB98ZZ Excision of Uterus, Via Natural or Artificial Opening Endoscopic (ICD-10-PCS; principal; 2021-11-04 13:30)
PROC: 0UDB7ZZ Extraction of Endometrium, Via Natural or Artificial Opening (ICD-10-PCS; 2021-11-04 13:30)
DX: N92.1 Excessive and frequent menstruation with irregular cycle (principal); N84.0 Polyp of corpus uteri; N97.9 Female infertility, unspecified
CPT/HCPCS: 81025; 88305-TC; 94760

== ENCOUNTER 2022-06-09 19:14 | Emergency (ER) | payer OTHER ==
[2022-06-09 19:31] VITALS: BP 144/87; PULSE 58; RESP 16; TEMP 98.6; BMI 38.3
[2022-06-09 19:56] LABS: HCG,QUALITATIVE URINE Negative
[2022-06-09 20:13] LABS: HEMATOCRIT 32.9 % (32.4-45.2); HEMOGLOBIN 10.7 G/dL (10.7-15.3); MCH 25.3 pg (25.7-33.7); MCHC 32.4 g/dl (32.0-36.0); MEAN CELL VOLUME 78.2 fl (80-96); MEAN PLT VOLUME 9.4 fl (7.5-11.1); RBC 4.21 10^6/uL (3.60-5.2); RDW 18.1 % (11.6-15.6); WHITE BLOOD COUNT 6.5 10^3/uL (4.0-10.8)
[2022-06-09 20:29] LABS: ALBUMIN 3.6 g/dl (3.4-5.0); BILIRUBIN,TOTAL 0.5 mg/dl (0.2-1); CALCIUM 8.9 mg/dl (8.5-10); CREATININE 0.7 mg/dl (0.55-1.3); TOT PROT 7.1 g/dl (6.4-8.2)
[2022-06-09] MEDS ORDERED: ACETAMINOPHEN 1000 MG/100 ML BAG IVPB ONE (20:29)
[2022-06-09] MEDS ORDERED: ACETAMINOPHEN INJECTION 100 ML IVPB ONE (21:01)
[2022-06-09 21:17] LABS: EPITHELIAL CELLS FEW /hpf
[2022-06-09 21:18] LABS: PLATELET ESTIMATE ADEQUATE
== END 2022-06-09 22:47 | disposition home or self-care (01) ==
LOC: FER 19:14
PROC: 3E033GC Introduction of Other Therapeutic Substance into Peripheral Vein, Percutaneous Approach (ICD-10-PCS; principal; 2022-06-09)
DX: R10.31 Right lower quadrant pain (principal)
CPT/HCPCS: 36415; 74176-TC; 80053; 81003; 81015; 84703; 85027; 96374; 99285-25

== ENCOUNTER 2025-01-02 06:13 | Day surgery (SDC) | payer OTHER ==
[2024-12-27 16:27] VITALS: BMI 35.2
[2025-01-02] MEDS ORDERED: MISOPROSTOL 200 MCG TABLET NR ONE (07:15)
[2025-01-02] MEDS ORDERED: ACETAMINOPHEN 1000 MG/100 ML BAG IVPB ONE (07:30)
[2025-01-02] MEDS ORDERED: ROCURONIUM BROMIDE 50 MG/5 ML SYRINGE ONE ×2 (07:42→09:19)
[2025-01-02] MEDS ORDERED: PROPOFOL 20 ML ONE ×3 (07:42→10:52)
[2025-01-02] MEDS ORDERED: SUCCINYLCHOLINE CHLORIDE 200 MG/10 ML SYRINGE ONE (07:42)
[2025-01-02] MEDS ORDERED: MIDAZOLAM HCL 2 MG/2 ML SINGLE DOSE VIAL ONE (07:42)
[2025-01-02] MEDS ORDERED: KETOROLAC TROMETHAMINE 30 MG/1 ML VIAL ONE (07:47)
[2025-01-02] MEDS ORDERED: DEXAMETHASONE SOD PHOSPHATE 4 MG/1 ML VIAL ONE (07:47)
[2025-01-02] MEDS ORDERED: ONDANSETRON 4 MG/2 ML VIAL ONE (07:47)
[2025-01-02] MEDS ORDERED: CEFAZOLIN 2 GM in DEXTROSE 5%-WATER - 100 ML IVPB ONE (08:00)
[2025-01-02] MEDS ORDERED: TRANEXAMIC ACID 1000 MG/10 ML VIAL ONE ×2 (08:31→08:32)
[2025-01-02 14:23] VITALS: RESP 16
[2025-01-02] MEDS: CEFAZOLIN 3 GM in DEXTROSE 5%-WATER - 100 ML IVPB ONE (15:15)
[2025-01-02 16:37] VITALS: BP 132/73; PULSE 67; TEMP 97.5
== END 2025-01-02 17:00 | disposition home or self-care (01) ==
LOC: JASU-SURG 06:13
PROVIDERS: ATTEND Specialist
PROC: 0UB94ZZ Excision of Uterus, Percutaneous Endoscopic Approach (ICD-10-PCS; principal; 2025-01-02 08:00)
DX: D25.9 Leiomyoma of uterus, unspecified (principal); N73.6 Female pelvic peritoneal adhesions (postinfective)
CPT/HCPCS: 58545; S2900; 88305-TC; 94760